=== PATIENT | male | born 1985 | race Caucasian/White ===

== ENCOUNTER → 2020-11-11 08:59 | Outpatient (CLI) | payer OTHER, SELFPAY ==
--- NOTE | 2020-11-11 09:01 | DI.RAD.S_ITS ---
PROCEDURE: XR CHEST 2V INDICATIONS: dyspnea TECHNIQUE: 2 views of the chest were acquired. COMPARISON: None. FINDINGS: Surgical changes and devices: None. Lungs and pleura: Mild patchy perihilar opacities involving the right lung, although no definite focal consolidation. No pleural effusions or pneumothorax. Mediastinum: Mediastinal contours are normal. Heart size is normal. Bones and chest wall: No suspicious bony abnormalities. Soft tissues appear unremarkable. IMPRESSION: Mild patchy right perihilar opacities, potentially early pneumonia versus aspiration/atelectasis. If there is persistent clinical diagnostic uncertainty, continued surveillance with short interval radiographic followup after treatment is recommended. Dictated by: Wily Salazar M.D. on 11/11/2020 at 10:25 Approved by: Wily Salazar M.D. on 11/11/2020 at 10:28
== END ==
PROVIDERS: PCP Family Medicine; Referring Provider Family Medicine; Visit Provider Family Medicine
DX: R06.00 Dyspnea, unspecified (principal)
CPT/HCPCS: 71046

== ENCOUNTER → 2020-11-24 06:51 | Outpatient (CLI) | payer OTHER, SELFPAY ==
[2020-11-24 08:39] LABS: COVID19 -Nasal RAPID Negative (Negative)
== END ==
PROVIDERS: PCP Family Medicine; Referring Provider Internal Medicine; Visit Provider Internal Medicine
DX: Z20.822 Contact with and (suspected) exposure to COVID-19 (principal)
CPT/HCPCS: 87635; C9803

== ENCOUNTER → 2020-11-25 06:46 | Outpatient (CLI) | payer OTHER, SELFPAY ==
--- NOTE | 2020-12-04 09:43 | PM.PFT.1 ---
Pulmonary Function Test Referral & Results Date Patient Seen: 11/25/20 Requesting provider: Ferdinand Kramer Results: The spirometry demonstrates an FVC of 6.74 L which is 113% of predicted. The FEV1 was measured at 5.82 L which is 122% of predicted. The FEV1/FVC ratio was 86 which is 106% of predicted. Following the administration of bronchodilator there was no appreciable change to above normal numbers Lung volumes show an SVC of 6.88 L which is 121% of predicted. The diffusing capacity was measured at 40.88 which is 112% of predicted. The maximum voluntary ventilation was normal Interpretation: This study demonstrates normal pulmonary function
== END ==
PROVIDERS: PCP Family Medicine; Referring Provider Family Medicine; Visit Provider Family Medicine
DX: R06.00 Dyspnea, unspecified (principal); Z87.891 Personal history of nicotine dependence
CPT/HCPCS: 94060; 94726; 94729

== ENCOUNTER → 2021-02-21 12:38 | Outpatient (CLI) | payer OTHER, SELFPAY ==
--- NOTE | 2021-02-21 12:40 | DI.RAD.S_ITS ---
PROCEDURE: XR CHEST 2V INDICATIONS: dyspnea TECHNIQUE: 2 views of the chest were acquired. COMPARISON: [facility], CR, XR CHEST 2V, 11/11/2020, 8:58. FINDINGS: Surgical changes and devices: None. Lungs and pleura: Persistent faint density in the medial right lower lung zone. The remaining lung zones are well aerated. No pleural effusions or pneumothorax. Mediastinum: Mediastinal contours are normal. Heart size is normal. Bones and chest wall: No suspicious bony abnormalities. Soft tissues appear unremarkable. IMPRESSION: 1. Persistent faint density in the medial right lower lung zone. Differential considerations include partial lobe collapse, atelectasis, or soft tissue attenuation. If the patient remains symptomatic, consider CT imaging for further evaluation. Dictated by: Link Limon M.D. on 02/21/2021 at 12:48 Approved by: Link Limon M.D. on 02/21/2021 at 12:52
== END ==
PROVIDERS: PCP Family Medicine; Referring Provider Family Medicine; Visit Provider Family Medicine
DX: R06.00 Dyspnea, unspecified (principal)
CPT/HCPCS: 71046

== ENCOUNTER → 2021-03-21 09:13 | Outpatient (CLI) | payer OTHER, SELFPAY ==
--- NOTE | 2021-03-21 09:14 | DI.CT.S_ITS ---
PROCEDURE: CT CHEST WO CON INDICATIONS: shortness of breath TECHNIQUE: Noncontrast 5 mm thick sections acquired from the pulmonary apices to the posterior costophrenic angles. 1 mm lung window, 5 mm thick coronal and sagittal and 7 mm axial MIP reformats were then acquired. For radiation dose reduction, the following was used: automated exposure control, adjustment of mA and/or kV according to patient size. COMPARISON: [facility], CR, XR CHEST 2V, 11/11/2020, 8:58. [facility], CR, XR CHEST 2V, 02/21/2021, 12:34. FINDINGS: Image quality: Excellent. Lungs and pleura: No acute air space opacities. No pleural effusions or pneumothorax. Central and peripheral airways are patent and normal in caliber. Mediastinum: Heart size is normal. No pericardial effusion. No mediastinal adenopathy by size criteria. Thoracic aorta and central pulmonary arteries are normal in size. Esophagus is normal in caliber. No hiatal hernia. Bones and chest wall: No suspicious bony lesions. No vertebral body compression fractures. No axillary or supraclavicular adenopathy by size criteria. Thyroid appears normal. Abdomen: The liver is diffusely hypoattenuating, consistent with fatty infiltration. Visualized upper abdominal solid organs and bowel loops otherwise appear normal in the absence of contrast. IMPRESSION: 1. No acute abnormality is seen in the chest. The previously seen right infrahilar opacity may have been secondary to superimposition of normal structures versus a resolved infectious or inflammatory process. 2. Diffuse hepatic steatosis. Dictated by: Abilio Dong M.D. on 03/21/2021 at 9:56 Approved by: Abilio Dong M.D. on 03/21/2021 at 10:03
== END ==
PROVIDERS: PCP Family Medicine; Referring Provider Family Medicine; Visit Provider Family Medicine
DX: R06.02 Shortness of breath (principal); R93.89 Abnormal findings on diagnostic imaging of other specified body structures; K76.0 Fatty (change of) liver, not elsewhere classified
CPT/HCPCS: 71250

== ENCOUNTER → 2021-09-23 12:30 | Outpatient (CLI) | payer OTHER, SELFPAY ==
[2021-09-23 14:15] LABS: Add Manual Diff / Slide Review NO; Basophils Absolute Auto 0 /uL (0-100); Basophils Percent Auto 0.5 % (0-2); Eosinophils Absolute Auto 0 /uL (0-450); Eosinophils Percent Auto 0.7 % (2-4); Hemoglobin 15.8 g/dL (13.5-17.5); Lymphocytes Absolute Auto 1600 /uL (1100-4500); Lymphocytes Percent Auto 31.2 % (25-40); Mean Corpuscular HGB Conc 35.1 % (30-36); Mean Corpuscular Hemoglobin 30.8 PG (26-34); Mean Corpuscular Volume 87.8 fL (80-100); Monocytes Absolute Auto 800 /uL (0-900); Monocytes Percent Auto 16.9 % (3-14); Neutrophils Absolute Auto 2500 /uL (1500-7000); Neutrophils Percent Auto 50.7 % (50-75); Platelet Count 247 X10^3/uL (150-400); Red Blood Cell Count 5.13 X10^6/uL (4.5-5.9); Red Cell Distribution Width 12.5 % (11.6-14.8)
[2021-09-23 15:04] LABS: Alanine Aminotransferase 46 IU/L (<50); Albumin 4.9 g/dL (3.5-5.0); Albumin Globulin Ratio 1.4 (1.0-2.8); Alkaline Phosphatase 72 U/L (38-126); Aspartate Aminotransferase 36 IU/L (17-59); BUN Creatinine Ratio 26.1 (6-22); Bilirubin Total 0.8 mg/dL (0.2-1.3); Blood Urea Nitrogen 23 mg/dL (9-20); Calcium 9.5 mg/dL (8.4-10.2); Carbon Dioxide 28 mmol/L (22-32); Chloride 101 mmol/L (98-107); Cholesterol 175 mg/dL (140-199); Estimated Glomerular Filt Rate > 60 mL/min (>60); Globulin 3.6 g/dL (1.7-4.1); Glucose 90 mg/dL (70-100); HDL Cholesterol 36 mg/dL (40-60); HEMOLYSIS < 15 (0-50); LDL Cholesterol Calculated 121 mg/dL (<100); Potassium 4.3 mmol/L (3.4-5.1); Sodium 139 mmol/L (137-145); Total Protein 8.5 g/dL (6.3-8.2); Triglycerides 90 mg/dL (35-150)
[2021-09-23 15:33] LABS: TSH w/ Reflex to FT4 1.01 uIU/mL (0.47-4.68)
== END ==
PROVIDERS: PCP Family Medicine; Referring Provider Family Medicine; Visit Provider Family Medicine
DX: K76.0 Fatty (change of) liver, not elsewhere classified (principal)
CPT/HCPCS: 36415; 80053; 80061; 84443; 85025

== ENCOUNTER → 2021-09-26 14:12 | Outpatient (CLI) | payer OTHER, SELFPAY ==
--- NOTE | 2021-09-26 14:13 | DI.RAD.S_ITS ---
PROCEDURE: XR CERVICAL SPINE 2V OR 3V INDICATIONS: chronic neck and low back pain TECHNIQUE: 3 view(s) of the cervical spine were acquired. COMPARISON: None. FINDINGS: Bones: No fractures or dislocations to the C7-T1 level. The lateral masses of C1 appear intact on the odontoid view. No suspicious bony lesions. There is loss of the normal cervical lordosis. Minimal facet degenerative changes present at several levels, most pronounced at C5-6. Soft tissues: No prevertebral soft tissue swelling. IMPRESSION: 1. Minimal multilevel degenerative changes. 2. Loss of the normal cervical lordosis, a finding that can be seen in the setting of muscle strain or spasm. 3. No acute cervical spine fracture visualized radiographically. Dictated by: Abilio Dhillon M.D. on 09/26/2021 at 14:57 Approved by: Abilio Dhillon M.D. on 09/26/2021 at 15:00
--- NOTE | 2021-09-26 14:13 | DI.RAD.S_ITS ---
PROCEDURE: XR LUMBAR SPINE MIN 4V INDICATIONS: chronic neck and low back pain TECHNIQUE: 5 views of the lumbar spine were acquired, including bilateral oblique views. COMPARISON: None. FINDINGS: Bones: 5 nonrib-bearing vertebrae are present. There is normal bony alignment. No vertebral body compression fractures. No suspicious bony lesions. Moderate L5-S1 degenerative disc disease. Mild L4-L5 degenerative disc disease. Soft tissues: Overlying bowel gas pattern is normal. No suspicious soft tissue calcifications. Oblique images: No pars defects. IMPRESSION: Multilevel degenerative disc disease. No acute osseous lesion. If symptoms and/or clinical suspicion for pathology persists, evaluation with MRI should be considered for further assessment. Dictated by: Lucero Wooten MD, PhD on 09/26/2021 at 15:57 Approved by: Lucero Wooten MD, PhD on 09/26/2021 at 15:57
== END ==
PROVIDERS: PCP Family Medicine; Referring Provider Family Medicine; Visit Provider Family Medicine
DX: M54.2 Cervicalgia (principal); G89.29 Other chronic pain; M51.36 Other intervertebral disc degeneration, lumbar region
CPT/HCPCS: 72040; 72110

== ENCOUNTER 2024-03-12 19:13 | Emergency (ER) | payer OTHER, MEDICAID, SELFPAY ==
[2024-03-12 19:17] VITALS: BP 152/95; PULSE 81; RESP 17; TEMP 37.2; O2SAT 96; BMI 29.7
--- NOTE | 2024-03-12 21:42 | ED.SKABFB ---
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 History of prior MRSA infection lower extremity in the past. No recent antibiotics. This is his 1st visit for this. No fevers or chills. Related Data Previous Rx's Medication Instructions Recorded cyclobenzaprine 7.5 mg tablet 7.5 mg PO TID PRN muscle spasm #30 09/26/21 tabs prednisone 20 mg tablet 40 mg (2 x 20 mg) PO DAILY #10 tabs 09/26/21 clindamycin HCl 300 mg capsule 300 mg PO Q6H Dental infection 7 03/12/24 days #28 caps doxycycline hyclate 100 mg tablet 100 mg PO BID #14 tabs 03/12/24 Allergies Allergy/AdvReac Type Severity Reaction Status Date / Time No Known Drug Allergies Allergy Verified 11/11/20 08:31 Review of Systems Review of Systems Narrative: see HPI Patient History Medical History (Updated 03/12/24 @ 21:53 by Gorge Yang MD) Lumbar degenerative disc disease Chronic neck pain Hepatic steatosis Social History Smoking Status: Former smoker Smoking Status: Former smoker Exam Narrative Exam Narrative: GENERAL: Well-developed patient, in mild distress. HEAD: Atraumatic. Normocephalic. EYES: Pupils equal round and reactive. Extraocular motions intact. No scleral icterus. No injection or drainage. ENT: Nose without bleeding, purulent drainage. Throat without erythema, tonsillar hypertrophy or exudate. Airway patent. NECK: Trachea midline. Non tender CARDIOVASCULAR: Regular rate and rhythm without murmurs, gallops, or rubs. RESPIRATORY: Clear to auscultation. Breath sounds equal bilaterally. No wheezes, rales, or rhonchi. GASTROINTESTINAL: Abdomen soft, non-tender, nondistended. EXTREMITIES: Left hand 3rd MCP with dorsal ulcer, some surrounding erythema, no expressible fluid, he can fully extend at MCP and IP joints, he can flex hand into a fist. No lymphangitic streaking to to hand and wrist and forearm. BACK: Nontender without deformity or crepitance. No flank tenderness. NEURO: AOx3. Motor functions grossly nonfocal SKIN: No rash or erythema of visible areas Initial Vital Signs Initial Vital Signs: Vital Signs Temperature 98.9 F 03/12/24 19:17 Pulse Rate 81 03/12/24 19:17 Respiratory Rate 17 03/12/24 19:17 Blood Pressure 152/95 H 03/12/24 19:17 Pulse Oximetry 96 03/12/24 19:17 Oxygen Delivery Method Room Air 03/12/24 19:17 Course Orders Ordered: ED Orders 03/12/24 21:49 XR hand LT min 3V Stat Discontinued Medications Bacitracin (Bacitracin Oint 0.9 Gm Pckt) 1 applic TOP NOW ONE Stop: 03/12/24 23:04 Last Admin: 03/12/24 23:07 Dose: 1 applic Documented By: CANDACE Clindamycin HCl (Clindamycin 150 Mg Capsule) 300 mg PO NOW ONE Stop: 03/12/24 21:51 Last Admin: 03/12/24 21:59 Dose: 300 mg Documented By: CANDACE Doxycycline Hyclate (Doxycycline Hyclate 100 Mg Tablet) 100 mg PO NOW ONE Stop: 03/12/24 21:51 Last Admin: 03/12/24 21:59 Dose: 100 mg Documented By: CANDACE Vital Signs Vital signs: Vital Signs - 8 hr 03/12/24 19:17 Temperature 98.9 F Pulse Rate 81 Respiratory Rate 17 Blood Pressure 152/95 H Pulse Oximetry 96 Oxygen Delivery Method Room Air MDM - Skin/Abscess/Foreign Bdy Imaging Data Extremity x-ray #1: Radiologist's Impression: [address] [address] XRay Report Signed Patient: Darryn Rubin MR#: [id number] : 1985 Acct:[id number] Age/Sex: 38 / M Date of Service: 03/12/24 Loc: ED Accession Number: [id number] Procedure: XR hand LT min 3V Ordering Provider: Gorge Yang MD PROCEDURE: XR HAND LT MIN 3V INDICATIONS: MCP red, eval for FB/osteo changes TECHNIQUE: 3 views of the hand(s) acquired. COMPARISON: None. FINDINGS: Bones: No acute fracture or dislocation. Likely old injury involving 5th metacarpal base. Carpal bones are normally aligned. No bony erosive changes. No suspicious bony lesions. Soft tissues: No suspicious soft tissue calcifications. IMPRESSION: No acute left hand fracture or dislocation. No radiographic evidence of osteomyelitis. Likely old injury involving 5th metacarpal base. No radiopaque foreign bodies. Dictated by: Bruno Akins M.D. on 03/12/2024 at 22:05 Approved by: Bruno Akins M.D. on 03/12/2024 at 22:06 [facility] Narrative Medical decision making narrative: Left 3rd MCP area ulceration with surrounding erythema, now 2 weeks duration, initial prick flex puncture like wound. We will get x-ray to look for any underlying foreign body that might be radiographically visible, also for any changes of osteomyelitis. History of MRSA lower extremity noted. No fever on triage, sirs screen negative. Oral antibiotic clindamycin and doxycycline 1st dose now, prescription to be sent to his pharmacy. X-ray left hand showed no obvious foreign body, fracture, lytic lesions. See radiology report Antibiotics sent to his pharmacy. Antibiotic ointment applied to ulcer wound. Wound check advised with the regular provider early next week. Return precautions discussed Discharge Plan Departure Patient Disposition: Home Clinical Impression: Cellulitis of hand, Open wound, hand Activity Restrictions/Additional Instructions: Two weeks duration of persisting left 3rd finger middle knuckle wound, possible puncture/abrasion initial injury, spreading in size, not getting better, history of MRSA infection lower extremity in the past. We will cover for infection with antibiotics, 1st dose oral clindamycin and doxycycline given in the emergency department, further doses antibiotics sent to your pharmacy, take antibiotics as directed. X-ray without obvious underlying osteomyelitis bone changes, no obvious fracture, no obvious foreign body. It is possible to have a small retained foreign body that is not visible on plain x-ray. Recheck wound advised with Orthopedic surgery in the next couple of days. Contact information given for local orthopedic surgery. Return to this/nearest emergency department for any change worsening symptoms or any concerns Also consider [id number] antibiotic ointment over the wound ulcer area, as this might help promote fibroblast healing of the wound, keep the wound more moist to keep from drying out for now. Prescriptions: New clindamycin HCl 300 mg capsule 300 mg PO Q6H 7 Days Qty: 28 0RF doxycycline hyclate 100 mg tablet 100 mg PO BID Qty: 14 0RF No Action cyclobenzaprine 7.5 mg tablet 7.5 mg PO TID PRN (Reason: muscle spasm) Qty: 30 0RF prednisone 20 mg tablet 40 mg PO DAILY Qty: 10 0RF Referrals: Ferdinand Kramer MD [Primary Care Provider] - Flor Mcleod MD [Physician] - Stand Alone Forms: Patient Portal/API/Survey
--- NOTE | 2024-03-12 21:49 | DI.RAD.S_ITS ---
PROCEDURE: XR HAND LT MIN 3V INDICATIONS: MCP red, eval for FB/osteo changes TECHNIQUE: 3 views of the hand(s) acquired. COMPARISON: None. FINDINGS: Bones: No acute fracture or dislocation. Likely old injury involving 5th metacarpal base. Carpal bones are normally aligned. No bony erosive changes. No suspicious bony lesions. Soft tissues: No suspicious soft tissue calcifications. IMPRESSION: No acute left hand fracture or dislocation. No radiographic evidence of osteomyelitis. Likely old injury involving 5th metacarpal base. No radiopaque foreign bodies. Dictated by: Bruno Akins M.D. on 03/12/2024 at 22:05 Approved by: Bruno Akins M.D. on 03/12/2024 at 22:06
[2024-03-12] MEDS: CLINDAMYCIN 150 MG CAPSULE 300 MG PO (21:59)
[2024-03-12] MEDS: DOXYCYCLINE HYCLATE 100 MG TABLET PO (21:59)
[2024-03-12] MEDS: BACITRACIN OINT 0.9 GM PCKT 1 APPLIC TOP (23:07)
== END 2024-03-12 23:16 | disposition home or self-care (01) ==
PROVIDERS: Emergency Provider Emergency Medicine; PCP Family Medicine
DX: L03.114 Cellulitis of left upper limb (principal); S61.402A Unspecified open wound of left hand, initial encounter; W45.8XXA Other foreign body or object entering through skin, initial encounter; Y93.89 Activity, other specified
CPT/HCPCS: 73130; 99283